=== PATIENT | male | born 1965 | race African-American/Black ===

== ENCOUNTER 2022-09-11 05:17 | Emergency (ER) | payer MEDICAID ==
[~2022-09-11] VITALS: Ht 182.9 cm; Wt 100.0 kg
[2022-09-11 05:23] VITALS: BP 204/120
[2022-09-11] MEDS ORDERED: ONDANSETRON HCL 4MG TABLET PO ONE (06:00)
== END 2022-09-11 06:15 | disposition home or self-care (01) ==
LOC: ER 05:33
DX: F12.10 Cannabis abuse, uncomplicated (principal); E11.9 Type 2 diabetes mellitus without complications; I10 Essential (primary) hypertension; Z88.2 Allergy status to sulfonamides
CPT/HCPCS: 99283